=== PATIENT | male | born 1985 ===

== ENCOUNTER 2016-12-10 01:24 | Emergency (ER) | payer MEDICAID, SELFPAY ==
[2016-12-10 01:24] VITALS: BMI 30.2
[2016-12-10 01:31] VITALS: BP 124/77; PULSE 81; RESP 18; TEMP 99.1; O2SAT 98
--- NOTE | 2016-12-10 01:34 | ED PDOC ---
HPI: CCC, URI, Sore Throat Time Seen by Provider: 12/10/16 01:34 Chief Complaint (Nursing): ENT Problem Chief Complaint (Provider): sore throat, fever, cough History Per: Patient Additional Complaint(s): 31-year-old male with history of HIV presents to emergency department with fever , cough and sore throat that started yesterday. Patient is tolerating liquids and solids but has pain when swallowing. He denies any nausea or vomiting. Patient also commented mild headache. He states the cough is nonproductive. Patient states that he is compliant with HIV meds. Past Medical History Reviewed: Historical Data, Nursing Documentation, Vital Signs Vital Signs: Last Vital Signs Temp 99.1 F 12/10/16 01:28 Pulse 81 12/10/16 01:28 Resp 18 12/10/16 01:28 BP 124/77 12/10/16 01:28 Pulse Ox 98 12/10/16 02:36 - Medical History PMH: Anxiety, Depression, HIV - Surgical History Surgical History: Hernia Repair - Family History Family History: States: No Known Family Hx - Living Arrangements Living Arrangements: With Family - Social History Current smoker - smoking cessation education provided: No Alcohol: Social Drugs: Denies - Home Medications Home Medications: Ambulatory Orders Medication Instructions Recorded Elviteg/Tania/Emtric/Tenofo Dis 1 tab PO QPM 02/25/16 [Stribild Tablet] Albuterol HFA [Ventolin HFA 90 2 puff IH Q4H #1 puff 06/15/16 mcg/actuation (8 g)] Cetirizine HCl [All Day Allergy 10 mg PO QPM 06/23/16 Relief] DiphenhydrAMINE [Benadryl] 50 mg PO HS PRN 06/23/16 Famotidine [Pepcid] 20 mg PO QPM 06/23/16 Oseltamivir [Tamiflu] 75 mg PO BID #10 cap 06/23/16 valACYclovir [Valtrex] 1 gm PO QPM 06/23/16 Naproxen [Naprosyn Tab] 375 mg PO Q12 PRN #20 tab 07/20/16 Albuterol HFA [Ventolin HFA 90 1 puff IH ASDIR #1 unit 12/10/16 mcg/actuation (8 g)] Benzonatate 200 mg PO TID PRN #20 capsule 12/10/16 Ibuprofen [Motrin] 600 mg PO Q6 PRN #15 tab 12/10/16 Levofloxacin [Levaquin] 500 mg PO DAILY #6 tablet 12/10/16 - Allergies Allergies/Adverse Reactions: Allergies Allergy/AdvReac Type Severity Reaction Status Date / Time dextromethorphan HBr Allergy RASH Verified 06/15/16 12:51 [From [facility] DM Cough-Chest Congest] guaifenesin Allergy RASH Verified 06/15/16 12:51 [From [facility] DM Cough-Chest Congest] Curb-65 Severity Score - CURB-65 Severity Score Confusion: No Respiratory Rate greater than/equal to 30: No Systolic BP <90 or Diastolic BP less than/equal 60mmHg: No Age >64: No Curb-65 Score: 0 Percentage 30-day mortality: 0.6% Review of Systems ROS Statement: Except As Marked, All Systems Reviewed And Found Negative Constitutional: Positive for: Fever, Chills ENT: Positive for: Nose Congestion, Throat Pain, Throat Swelling Cardiovascular: Negative for: Chest Pain Respiratory: Positive for: Cough Gastrointestinal: Negative for: Nausea, Vomiting Neurological: Positive for: Headache. Negative for: Dizziness Physical Exam - Reviewed Nursing Documentation Reviewed: Yes Vital Signs Reviewed: Yes - Physical Exam Appears: Positive for: Well Skin: Negative for: Rash Eye Exam: Positive for: Normal appearance, EOMI, PERRL ENT: Positive for: TM Is/Are (normal bilaterally), Nasal Congestion, Pharyngeal Erythema, Tonsillar Swelling. Negative for: Tonsillar Exudate Cardiovascular/Chest: Positive for: Regular Rate, Rhythm Respiratory: Positive for: Normal Breath Sounds, Other (dry cough noted during exam). Negative for: Rales, Rhonchi, Wheezing, Respiratory Distress Gastrointestinal/Abdominal: Positive for: Soft. Negative for: Tenderness Extremity: Positive for: Normal ROM Neurologic/Psych: Positive for: Alert, Oriented - ECG O2 Sat by Pulse Oximetry: 98 Pulse Ox Interpretation: Normal - Other Rad CXR X-Ray: Interpreted by Me, Viewed By Me X-Ray Interpretation: no acute finding Medical Decision Making Medical Decision Makin31 year old with fever, sore throat and cough Plan: Flu swab Rapid strep and throat culture PO motrin CXR RSV and flu are negative. Will treat with rx levaquin, tessalon perles, ventolin and motrin rx. Advised fluids, rest and follow up with primary care doctor in 2-3 days. Disposition - Clinical Impression Clinical Impression: Pharyngitis, Bronchitis - Patient ED Disposition Is Patient to be Admitted: No Counseled Patient/Family Regarding: Studies Performed, Diagnosis, Need For Followup, Rx Given - Disposition Referrals: [facility] [Outside] Disposition: Routine/Home Disposition Time: 02:37 Condition: STABLE Additional Instructions: Take rx meds as directed. Rest and drink plenty of fluids. Follow up with primary care doctor or with clinic in 2-3 days. Prescriptions: Albuterol HFA [Ventolin HFA 90 mcg/actuation (8 g)] 1 puff IH ASDIR #1 unit Benzonatate 200 mg PO TID PRN #20 capsule PRN Reason: Cough Ibuprofen [Motrin] 600 mg PO Q6 PRN #15 tab PRN Reason: Pain, Moderate (4-7) Levofloxacin [Levaquin] 500 mg PO DAILY #6 tablet Instructions: Acute Bronchitis (ED), Pharyngitis (ED) Print Language: SINGAPOREAN
[2016-12-10] MEDS ORDERED: Dexamethasone 4 mg/1 ml IM STA (01:39)
[2016-12-10] MEDS ORDERED: levoFLOXacin 500 MG TAB PO STA (02:37)
--- NOTE | 2016-12-10 08:03 | RAD ---
HISTORY: cough COMPARISON: No prior. TECHNIQUE: Chest PA and lateral FINDINGS: LUNGS: No active pulmonary disease. PLEURA: No significant pleural effusion identified. No pneumothorax apparent. CARDIOVASCULAR: Normal. OSSEOUS STRUCTURES: No significant abnormalities. VISUALIZED UPPER ABDOMEN: Normal. OTHER FINDINGS: None. IMPRESSION: No active disease.
== END 2016-12-10 03:25 | disposition home or self-care (01) ==
LOC: H.ER 01:24
DX: J40 Bronchitis, not specified as acute or chronic (principal); R05 Cough; J02.9 Acute pharyngitis, unspecified

== ENCOUNTER 2017-03-09 00:42 | Emergency (ER) | payer MEDICAID, OTHER ==
[2017-03-09 00:43] VITALS: BMI 30.2
[2017-03-09] MEDS ORDERED: Sodium Chloride 0.9% 1,000 ML IV STA (01:15)
--- NOTE | 2017-03-09 01:20 | ED PDOC ---
HPI: General Adult Time Seen by Provider: 03/09/17 00:59 Chief Complaint (Nursing): Groin Pain Chief Complaint (Provider): left groin pain History Per: Patient, Other (significant other) History/Exam Limitations: no limitations Onset/Duration Of Symptoms: Days (5) Current Symptoms Are (Timing): Still Present Additional History Per: Patient Additional Complaint(s): 31 y/o male history of HIV presents with left groin pain x 5 days. Patient states he was admitted to [facility] from 03/04-03/07 for cellulitis of the left groin and given IV antibiotics. Patient states he was discharged with Clindamycin and Ibuprofen and told symptoms should resolved within a few days. Patient notes area to have become more swollen with worsening pain since discharge. Denies fever, nausea/vomiting, testicular pain/ swelling. Past Medical History Reviewed: Historical Data, Nursing Documentation, Vital Signs Vital Signs: Last Vital Signs Temp 98.1 F 03/09/17 03:43 Pulse 64 03/09/17 03:43 Resp 17 03/09/17 03:43 BP 111/57 L 03/09/17 03:43 Pulse Ox 99 03/09/17 04:49 - Medical History PMH: Anxiety, Depression, HIV - Surgical History Surgical History: Hernia Repair - Family History Family History: States: No Known Family Hx - Home Medications Home Medications: Ambulatory Orders Medication Instructions Recorded Elviteg/Tania/Emtric/Tenofo Dis 1 tab PO QPM 02/25/16 [Stribild Tablet] Albuterol HFA [Ventolin HFA 90 2 puff IH Q4H #1 puff 06/15/16 mcg/actuation (8 g)] Cetirizine HCl [All Day Allergy 10 mg PO QPM 06/23/16 Relief] DiphenhydrAMINE [Benadryl] 50 mg PO HS PRN 06/23/16 Famotidine [Pepcid] 20 mg PO QPM 06/23/16 Oseltamivir [Tamiflu] 75 mg PO BID #10 cap 06/23/16 valACYclovir [Valtrex] 1 gm PO QPM 06/23/16 Naproxen [Naprosyn Tab] 375 mg PO Q12 PRN #20 tab 07/20/16 Albuterol HFA [Ventolin HFA 90 1 puff IH ASDIR #1 unit 12/10/16 mcg/actuation (8 g)] Benzonatate 200 mg PO TID PRN #20 capsule 12/10/16 Ibuprofen [Motrin] 600 mg PO Q6 PRN #15 tab 12/10/16 Levofloxacin [Levaquin] 500 mg PO DAILY #6 tablet 12/10/16 Sulfamethoxazole/Trimethoprim 1 tab PO BID #14 tab 03/09/17 [Bactrim DS 800 mg-160 mg] traMADol [Ultram] 50 mg PO Q8 PRN #10 tab 03/09/17 - Allergies Allergies/Adverse Reactions: Allergies Allergy/AdvReac Type Severity Reaction Status Date / Time dextromethorphan HBr Allergy RASH Verified 06/15/16 12:51 [From [facility] Cough-Chest Congest] guaifenesin Allergy RASH Verified 06/15/16 12:51 [From [facility] Cough-Chest Congest] Review of Systems ROS Statement: Except As Marked, All Systems Reviewed And Found Negative Musculoskeletal: Positive for: Other (left groin pain) Physical Exam - Reviewed Nursing Documentation Reviewed: Yes Vital Signs Reviewed: Yes - Physical Exam Appears: Positive for: Well, Non-toxic, Uncomfortable Head Exam: Positive for: ATRAUMATIC, NORMAL INSPECTION, NORMOCEPHALIC Skin: Positive for: Normal Color Cardiovascular/Chest: Positive for: Regular Rate, Rhythm Respiratory: Positive for: Normal Breath Sounds Extremity: Positive for: Other ([id number] firm area of swelling/erythema with central non-draining lesion left groin. No streaking noted) Neurologic/Psych: Positive for: Alert, Oriented - Laboratory Results Result Diagrams: 03/09/17 01:20 03/09/17 01:20 - ECG O2 Sat by Pulse Oximetry: 99 - Progress ED Course And Treament: labs, CT pelvis with IV contrast, IV fluids, IV morphine EXAM: CT Pelvis With Intravenous Contrast EXAM DATE/TIME: 03/09/2017 1:36 AM CLINICAL HISTORY: 31 years old, male; Condition or disease; Mass, lump, or swelling; Lower quadrant, left; Additional info: Left groin pain/swelling TECHNIQUE: Axial computed tomography images of the pelvis with intravenous contrast. All CT scans at this facility use one or more dose reduction techniques, viz.: automated exposure control; ma/kV adjustment per patient size (including targeted exams where dose is matched to indication; i.e. head); or iterative reconstruction technique. Coronal and sagittal reformatted images were created and reviewed. CONTRAST: 90 mL of administered intravenously. COMPARISON: CT - ABD PELVIS IV CONTRAST ONLY 11/03/2015 4:08:26 PM FINDINGS: Bowel: No evidence of bowel obstruction. No pericolonic inflammatory stranding. Appendix: No findings to suggest acute appendicitis. Intraperitoneal space: Unremarkable. No free air. No significant fluid collection. Bladder: Unremarkable. No mass. Reproductive: Unremarkable as visualized. Bones/joints: No acute osseous abnormality. Soft tissues: Left inguinal subcutaneous edema and overlying skin thickening. No drainable fluid collection, soft tissue air or hernia. Vasculature: No lower abdominal aortic aneurysm. Lymph nodes: No enlarged lymph nodes. IMPRESSION: Left inguinal subcutaneous edema and overlying skin thickening. No drainable fluid collection, soft tissue air or hernia. Cellulitis favored in the proper clinical setting. Thank you for allowing us to participate in the care of your patient. IV vanco dose ordered On re-eval, patient states pain improved. Patient educated on findings, discharged with rx Bactrim DS (advised to take in place of clindamycin), tramadol. Advised warm compresses. Follow up in 48 hours for re-eval. Return to ED for worsening/concerning symptoms. Disposition - Clinical Impression Clinical Impression: Cellulitis of groin, left - Patient ED Disposition Is Patient to be Admitted: No Counseled Patient/Family Regarding: Studies Performed, Diagnosis, Need For Followup, Rx Given - Disposition Referrals: [facility] [Outside] Disposition: Routine/Home Disposition Time: 05:04 Condition: IMPROVED Prescriptions: Sulfamethoxazole/Trimethoprim [Bactrim DS 800 mg-160 mg] 1 tab PO BID #14 tab traMADol [Ultram] 50 mg PO Q8 PRN #10 tab PRN Reason: Pain, Severe (8-10) Instructions: Cellulitis (ED) Print Language: MALAY
[2017-03-09 01:47] LABS: BASO # 0.1 K/uL (0.0-0.2); BASO % 0.7 % (0.0-2.0); EOS # 0.7 K/uL (0.0-0.7); EOS % 7.1 % (0.0-4.0); HEMATOCRIT 41.4 % (35.0-51.0); LYMPH # 2.1 K/uL (1.0-4.3); LYMPH % 21.4 % (20.0-40.0); MEAN CELL VOLUME 91.1 fl (80.0-94.0); MEAN CORPUSCULAR HEMOGLOBIN 30.3 pg (27.0-31.0); MEAN CORPUSCULAR HGB CONC 33.3 g/dL (33.0-37.0); MEAN PLATELET VOLUME 7.6 fl (7.2-11.7); MONO # 0.6 K/uL (0.0-0.8); MONO % 6.5 % (0.0-10.0); NEUT # 6.2 K/uL (1.8-7.0); NEUT % 64.3 % (50.0-75.0); RED CELL DISTRIBUTION WIDTH 13.6 % (11.5-14.5); WHITE BLOOD COUNT 9.7 K/uL (4.8-10.8)
[2017-03-09 02:06] LABS: BLOOD UREA NITROGEN 12 mg/dl (9-20); GLUCOSE,RANDOM 95 mg/dL (75-110)
[2017-03-09 02:07] LABS: CALCIUM 9.1 mg/dL (8.4-10.2); CARBON DIOXIDE 23 mmol/L (22-30); CHLORIDE 107 mmol/L (98-107); GFR AFRICAN-AMERICAN > 60; SODIUM 139 mmol/l (132-148); TOTAL PROTEIN 7.8 G/DL (6.3-8.2)
[2017-03-09 02:08] LABS: ALB/GLOB RATIO 1.1 (1.0-2.1); ALKALINE PHOSPHATASE 125 U/L (38-126); ALT/SGPT 58 U/L (21-72); AST/SGOT 32 U/L (17-59); BILIRUBIN,TOTAL 0.3 mg/dl (0.2-1.3)
[2017-03-09] MEDS ORDERED: Sodium Chloride 0.9% 50 ML IV ONE (02:43)
[2017-03-09] MEDS ORDERED: Iohexol 300 100 ML IJ ONE (02:44)
[2017-03-09 03:43] VITALS: BP 111/57; PULSE 64; RESP 17; TEMP 98.1
[2017-03-09] MEDS ORDERED: Vancomycin 1 g Inj ONE (03:58)
[2017-03-09 04:49] VITALS: O2SAT 99
--- NOTE | 2017-03-09 08:14 | CT ---
PROCEDURE: CT Pelvis with contrast. HISTORY: left groin pain/swelling COMPARISON: None. TECHNIQUE: Contiguous axial images of the pelvis with contrast. Coronal and sagittal reformats generated. Contrast dose: Omnipaque 300, 90 cc Radiation dose: Total exam DLP = 490 mGy-cm. This CT exam was performed using one or more of the following dose reduction techniques: Automated exposure control, adjustment of the mA and/or kV according to patient size, and/or use of iterative reconstruction technique. FINDINGS: BLADDER: Unremarkable. No mass. REPRODUCTIVE ORGANS: Unremarkable. VISUALIZED BOWEL: Unremarkable. PERITONEUM: Unremarkable, as visualized. No free fluid. No free air. LYMPH NODES: Unremarkable. No enlarged lymph nodes. VASCULATURE: Unremarkable. BONES: No fracture or focal lesion. OTHER FINDINGS: Subcutaneous reactive changes are appreciate the left groin superficial to the inguinal canal with trace potential minimal fluid collection measuring approximately 1 cm. Findings compatible with cellulitis. No emphysema soft tissue change its are seen and no definitive retained radiodense foreign body is identified. Clinically correlate here. IMPRESSION: Findings most compatible with superficial left inguinal cellulitis separate from the left inguinal sheath. Trace fluid is related. No inguinal hernia appreciated or abscess. Clinical correlation and follow-up are advised.
== END 2017-03-09 05:49 | disposition home or self-care (01) ==
LOC: H.ER 00:42
DX: L03.314 Cellulitis of groin (principal); F32.9 Major depressive disorder, single episode, unspecified; F41.9 Anxiety disorder, unspecified; Z21 Asymptomatic human immunodeficiency virus [HIV] infection status
CPT/HCPCS: 72193; 80053; 83605; 85025; 87040; 96361; 96374; 96375; 99283; J2270; J7040; Q9967

== ENCOUNTER 2017-03-09 19:40 | Emergency (ER) | payer MEDICAID, OTHER ==
[2017-03-09 19:40] VITALS: BMI 30.2
[2017-03-09 20:11] VITALS: BP 120/76; PULSE 78; RESP 18; O2SAT 99
--- NOTE | 2017-03-09 20:44 | ED PDOC ---
HPI: Wound Care - HPI Time Seen by Provider: 03/09/17 20:23 Chief Complaint (Nursing): Abnormal Skin Integrity Chief Complaint (Provider): Wound Check History Per: Patient Exam Limitations: no limitations Onset/Duration Of Symptoms: Days (x 5) Current Symptoms Are (Timing): Still Present Quality Of Symptoms: Painful Additional Complaint(s): Rd is a 31 y/o male who presents to the ED for wound check. He was seen here last night for cellulitis of the left groin, and discharged with Bactrim and Tramadol, and instructed to return in 48 hours. Patient states that today his groin pain worsened, and is now radiating downward, and he noticed some drainage from affected area. PMD: Unknown Past Medical History Reviewed: Historical Data, Nursing Documentation, Vital Signs Vital Signs: Last Vital Signs Temp 100 F H 03/09/17 20:06 Pulse 78 03/09/17 20:06 Resp 18 03/09/17 20:06 BP 120/76 03/09/17 20:06 Pulse Ox 99 03/09/17 20:06 - Medical History PMH: Anxiety, Depression, HIV - Surgical History Surgical History: Hernia Repair - Family History Family History: States: No Known Family Hx - Living Arrangements Living Arrangements: With Family - Social History Current smoker - smoking cessation education provided: No Alcohol: Social Drugs: Denies - Home Medications Home Medications: Ambulatory Orders Medication Instructions Recorded Elviteg/Tania/Emtric/Tenofo Dis 1 tab PO QPM 02/25/16 [Stribild Tablet] Albuterol HFA [Ventolin HFA 90 2 puff IH Q4H #1 puff 06/15/16 mcg/actuation (8 g)] Cetirizine HCl [All Day Allergy 10 mg PO QPM 06/23/16 Relief] DiphenhydrAMINE [Benadryl] 50 mg PO HS PRN 06/23/16 Famotidine [Pepcid] 20 mg PO QPM 06/23/16 Oseltamivir [Tamiflu] 75 mg PO BID #10 cap 06/23/16 valACYclovir [Valtrex] 1 gm PO QPM 06/23/16 Naproxen [Naprosyn Tab] 375 mg PO Q12 PRN #20 tab 07/20/16 Albuterol HFA [Ventolin HFA 90 1 puff IH ASDIR #1 unit 06/10/17 mcg/actuation (8 g)] Benzonatate 200 mg PO TID PRN #20 capsule 12/10/16 Ibuprofen [Motrin] 600 mg PO Q6 PRN #15 tab 12/10/16 Levofloxacin [Levaquin] 500 mg PO DAILY #6 tablet 12/10/16 Sulfamethoxazole/Trimethoprim 1 tab PO BID #14 tab 03/09/17 [Bactrim DS 800 mg-160 mg] traMADol [Ultram] 50 mg PO Q8 PRN #10 tab 03/09/17 - Allergies Allergies/Adverse Reactions: Allergies Allergy/AdvReac Type Severity Reaction Status Date / Time dextromethorphan HBr Allergy RASH Verified 06/15/16 12:51 [From [facility] Cough-Chest Congest] guaifenesin Allergy RASH Verified 06/15/16 12:51 [From [facility] Cough-Chest Congest] Review of Systems ROS Statement: Except As Marked, All Systems Reviewed And Found Negative Constitutional: Negative for: Fever, Chills Skin: Positive for: Other (Wound check of infection to left groin) Physical Exam - Reviewed Nursing Documentation Reviewed: Yes Vital Signs Reviewed: Yes - Physical Exam Appears: Positive for: Non-toxic, No Acute Distress Head Exam: Positive for: ATRAUMATIC, NORMAL INSPECTION, NORMOCEPHALIC Eye Exam: Positive for: Normal appearance Gastrointestinal/Abdominal: Positive for: Soft Male Genital Exam: Positive for: other (Left groin: cellulitis noted with fluctuant actively draining pustular lesion, moderate tenderness to palpation) Extremity: Positive for: Normal ROM. Negative for: Deformity Neurologic/Psych: Positive for: Alert, Oriented. Negative for: Motor/Sensory Deficits - ECG O2 Sat by Pulse Oximetry: 99 (RA) Pulse Ox Interpretation: Normal Medical Decision Making Medical Decision Making: Time: 20:40 Impression: 31 year old male with abscess and cellulitis to the left groin Initial Plan: --Will perform I&D Procedure note: Under sterile conditions, abscess to left groin region was anesthetized with 10 mL of lidocaine 2% with epinephrine, good anesthesia was achieved, using an 11 blade a small incision was made overlying area of fluctuance, moderate amount of blood and purulent discharge expressed from wound. Sterile hemostat used to break up loculations, additional purulent discharge and blood were expressed. Wound was then irrigated with normal saline and Betadine and packed with half-inch iodoform packing, sterile dressing applied overlying packed abscess. Procedure was tolerated well by patient with no acute complications. Patient was advised to continue with bactrim and return to ED in 2 days wound check and packing removal or sooner if worse. Scribe Attestation: Documented by Marbella Aggarwal, acting as a scribe for Stacy Paris PA-C Provider Scribe Attestation: All medical record entries made by the Scribe were at my direction and personally dictated by me. I have reviewed the chart and agree that the record accurately reflects my personal performance of the history, physical exam, medical decision making, and the department course for this patient. I have also personally directed, reviewed, and agree with the discharge instructions and disposition. Disposition - Clinical Impression Clinical Impression: Cellulitis of groin, left, Abscess of groin, left - Patient ED Disposition Is Patient to be Admitted: No Counseled Patient/Family Regarding: Diagnosis, Need For Followup - Disposition Referrals: [facility] [Outside] Disposition: Routine/Home Disposition Time: 22:08 Condition: STABLE Additional Instructions: Keep bandage in place, do not remove or get wet. Take antibiotics as directed. Take pain medication as directed. Return in 2 days for wound recheck or sooner if worse. Instructions: Abscess (ED), Cellulitis (ED) Forms: [employer] (Zimbabwean)
[2017-03-09] MEDS ORDERED: Iodoform 1/2inx15ft BOT EXT ONE (20:51)
[2017-03-09] MEDS ORDERED: Lidocaine 2% w Epi 1:100,000 Inj IJ ONE (21:11)
[2017-03-09] MEDS ORDERED: Tmp-Smz 800 mg-160 mg DS Tab PO STA (22:03)
[2017-03-09] MEDS ORDERED: Tmp-Smz 800 mg-160 mg DS Tab ONE (22:08)
[2017-03-09 22:10] VITALS: TEMP 98.5
== END 2017-03-09 22:17 | disposition home or self-care (01) ==
LOC: H.ER 19:40
DX: L02.214 Cutaneous abscess of groin (principal); L03.314 Cellulitis of groin; F41.9 Anxiety disorder, unspecified; F32.9 Major depressive disorder, single episode, unspecified

== ENCOUNTER 2017-03-11 14:02 | Emergency (ER) | payer MEDICAID, OTHER ==
[2017-03-11 14:04] VITALS: BMI 30.2
[2017-03-11 14:09] VITALS: BP 109/72; PULSE 66; RESP 18; TEMP 98.6; O2SAT 99
[2017-03-11] MEDS ORDERED: Oxycodone/Acetaminophen 5/325 mg Tab PO STA (14:47)
--- NOTE | 2017-03-11 15:37 | ED PDOC ---
HPI: Wound Care - HPI Time Seen by Provider: 03/11/17 14:02 Chief Complaint (Nursing): Wound Check Chief Complaint (Provider): Wound Check History Per: Patient Exam Limitations: no limitations Onset/Duration Of Symptoms: Days (x2) Additional Complaint(s): Rd Schmidt is a 31 year old male with previous medical history of HIV, who presents to the emergency department for a would evaluation of left inguinal abscess status post incision and drainage 2 days ago. Denied any fever, chills or active drainage. Patient stated he was seen at [facility] 1 week ago for cellulitis and received IV antibiotics. He is currently taking Bactrim and pain medication which has not alleviated his symptoms. PMD: none provided Past Medical History Reviewed: Historical Data, Nursing Documentation, Vital Signs Vital Signs: Last Vital Signs Temp 98.6 F 03/11/17 14:07 Pulse 66 03/11/17 14:07 Resp 18 03/11/17 14:07 BP 109/72 03/11/17 14:07 Pulse Ox 99 03/11/17 14:07 - Medical History PMH: Anxiety, Depression, HIV - Surgical History Surgical History: Hernia Repair - Family History Family History: States: Unknown Family Hx - Social History Current smoker - smoking cessation education provided: No Ex-Smoker (has not smoked in the last 12 months): Yes Alcohol: Occasional Drugs: Denies - Home Medications Home Medications: Ambulatory Orders Medication Instructions Recorded Elviteg/Tania/Emtric/Tenofo Dis 1 tab PO QPM 02/25/16 [Stribild Tablet] Albuterol HFA [Ventolin HFA 90 2 puff IH Q4H #1 puff 06/15/16 mcg/actuation (8 g)] Cetirizine HCl [All Day Allergy 10 mg PO QPM 06/23/16 Relief] DiphenhydrAMINE [Benadryl] 50 mg PO HS PRN 06/23/16 Famotidine [Pepcid] 20 mg PO QPM 06/23/16 Oseltamivir [Tamiflu] 75 mg PO BID #10 cap 06/23/16 valACYclovir [Valtrex] 1 gm PO QPM 06/23/16 Naproxen [Naprosyn Tab] 375 mg PO Q12 PRN #20 tab 07/20/16 Albuterol HFA [Ventolin HFA 90 1 puff IH ASDIR #1 unit 12/10/16 mcg/actuation (8 g)] Benzonatate 200 mg PO TID PRN #20 capsule 12/10/16 Ibuprofen [Motrin] 600 mg PO Q6 PRN #15 tab 12/10/16 Levofloxacin [Levaquin] 500 mg PO DAILY #6 tablet 12/10/16 Sulfamethoxazole/Trimethoprim 1 tab PO BID #14 tab 03/09/17 [Bactrim DS 800 mg-160 mg] traMADol [Ultram] 50 mg PO Q8 PRN #10 tab 03/09/17 - Allergies Allergies/Adverse Reactions: Allergies Allergy/AdvReac Type Severity Reaction Status Date / Time dextromethorphan HBr Allergy RASH Verified 06/15/16 12:51 [From [facility] Cough-Chest Congest] guaifenesin Allergy RASH Verified 06/15/16 12:51 [From [facility] Cough-Chest Congest] Review of Systems ROS Statement: Except As Marked, All Systems Reviewed And Found Negative Constitutional: Negative for: Fever, Chills Musculoskeletal: Positive for: Leg Pain (left inguinal abscess ). Negative for : Other (active drainage) Physical Exam - Reviewed Nursing Documentation Reviewed: Yes Vital Signs Reviewed: Yes - Physical Exam Appears: Positive for: Well, Non-toxic, No Acute Distress Head Exam: Positive for: ATRAUMATIC, NORMAL INSPECTION, NORMOCEPHALIC Cardiovascular/Chest: Positive for: Regular Rate, Rhythm. Negative for: Chest Non Tender Respiratory: Positive for: Normal Breath Sounds. Negative for: Respiratory Distress Male Genital Exam: Positive for: inguinal tenderness (left-sided), other (4cm left inguinal induration. moderate purulent discharge noted). Negative for: erythema Extremity: Positive for: Normal ROM Neurologic/Psych: Positive for: Alert, apartment rental agent II-XII, Oriented - ECG O2 Sat by Pulse Oximetry: 99 (RA) Pulse Ox Interpretation: Normal Medical Decision Making Medical Decision Making: Initial Impression: Wound check Initial Plan: * Percocet 5/325mg PO Time:1450 --Verbal consent obtained by patient. --Wound packing was removed. --Wound to be repacked. Scribe Attestation: Documented by Laura Barnes, acting as a scribe for Falguni Moreno PA-C. Provider Scribe Attestation: All medical record entries made by the Scribe were at my direction and personally dictated by me. I have reviewed the chart and agree that the record accurately reflects my personal performance of the history, physical exam, medical decision making, and the department course for this patient. I have also personally directed, reviewed, and agree with the discharge instructions and disposition. Disposition - Clinical Impression Clinical Impression: Encounter for wound re-check - Disposition Disposition: Routine/Home Disposition Time: 15:52 Condition: FAIR Instructions: Abscess (ED) Forms: [employer] (Tajik)
== END 2017-03-11 15:53 | disposition home or self-care (01) ==
LOC: H.ER 14:02
DX: Z48.00 Encounter for change or removal of nonsurgical wound dressing (principal); F32.9 Major depressive disorder, single episode, unspecified; F41.9 Anxiety disorder, unspecified; Z21 Asymptomatic human immunodeficiency virus [HIV] infection status

== ENCOUNTER 2017-08-12 05:03 | Emergency (ER) | payer OTHER ==
[2017-08-12 05:15] VITALS: BMI 26.9
[2017-08-12 05:18] VITALS: BP 122/81; PULSE 94; RESP 16; TEMP 97.6; O2SAT 98
[2017-08-12] MEDS ORDERED: Naproxen 500 MG TAB PO STA (05:28)
[2017-08-12] MEDS ORDERED: Tmp-Smz 800 mg-160 mg DS Tab PO STA (05:28)
--- NOTE | 2017-08-12 05:33 | ED PDOC ---
Lower Extremity Pain/Injury Time Seen by Provider: 08/12/17 05:23 Chief Complaint (Nursing): Lower Extremity Problem/Injury History Per: Patient History/Exam Limitations: no limitations Additional Complaint(s): 31 yo M presents c/o several day h/o pain, redness, and swelling to the b/l 1st toes. Reports h/o ingrown toenails in the past. Reports no trauma, injury, fever , chills, numbness or decrease in ROM. Tdap UTD Past Medical History Vital Signs: Last Vital Signs Temp 97.6 F 08/12/17 05:15 Pulse 94 H 08/12/17 05:15 Resp 16 08/12/17 05:15 BP 122/81 08/12/17 05:15 Pulse Ox 98 08/12/17 05:15 - Medical History PMH: Anxiety, Depression, HIV - Surgical History Surgical History: Hernia Repair - Family History Family History: States: Unknown Family Hx - Home Medications Home Medications: Ambulatory Orders Medication Instructions Recorded Elviteg/Tania/Emtric/Tenofo Dis 1 tab PO QPM 02/25/16 [Stribild Tablet] Albuterol HFA [Ventolin HFA 90 2 puff IH Q4H #1 puff 06/15/16 mcg/actuation (8 g)] Cetirizine HCl [All Day Allergy 10 mg PO QPM 06/23/16 Relief] DiphenhydrAMINE [Benadryl] 50 mg PO HS PRN 06/23/16 Famotidine [Pepcid] 20 mg PO QPM 06/23/16 Oseltamivir [Tamiflu] 75 mg PO BID #10 cap 06/23/16 valACYclovir [Valtrex] 1 gm PO QPM 06/23/16 Naproxen [Naprosyn Tab] 375 mg PO Q12 PRN #20 tab 07/20/16 Albuterol HFA [Ventolin HFA 90 1 puff IH ASDIR #1 unit 12/10/16 mcg/actuation (8 g)] Benzonatate 200 mg PO TID PRN #20 capsule 12/10/16 Ibuprofen [Motrin] 600 mg PO Q6 PRN #15 tab 12/10/16 Levofloxacin [Levaquin] 500 mg PO DAILY #6 tablet 12/10/16 Sulfamethoxazole/Trimethoprim 1 tab PO BID #14 tab 03/09/17 [Bactrim DS 800 mg-160 mg] traMADol [Ultram] 50 mg PO Q8 PRN #10 tab 03/09/17 Cephalexin [Keflex] 500 mg PO Q6 #28 capsule 08/12/17 Naproxen 500 mg PO BID #30 tab 08/12/17 Ondansetron ODT [Zofran ODT] 4 mg PO DAILY PRN #20 odt 08/12/17 Sulfamethoxazole/Trimethoprim 2 tab PO BID #28 tab 08/12/17 [Bactrim DS 800 mg-160 mg] - Allergies Allergies/Adverse Reactions: Allergies Allergy/AdvReac Type Severity Reaction Status Date / Time dextromethorphan HBr Allergy RASH Verified 06/15/16 12:51 [From [facility] Cough-Chest Congest] guaifenesin Allergy RASH Verified 06/15/16 12:51 [From [facility] Cough-Chest Congest] Review of Systems Constitutional: Negative for: Fever, Chills, Malaise Musculoskeletal: Positive for: Foot Pain. Negative for: Neck Pain, Back Pain Skin: Negative for: Rash, Lesions Physical Exam - Reviewed Nursing Documentation Reviewed: Yes Vital Signs Reviewed: Yes - Physical Exam Appears: Positive for: Well, Non-toxic, In Acute Distress (mild painful) Skin: Positive for: Normal Color, Warm, Dry Pulses-Dorsalis Pedis (L): 2+ Pulses-Dorsalis Pedis (R): 2+ Extremity: Positive for: Normal ROM, Capillary Refill (normal), Swelling (+edema , erythema and tenderness by the nail margin of b/l great toe with +purulent d/ c to the L great toenail). Negative for: Deformity - ECG O2 Sat by Pulse Oximetry: 98 Medical Decision Making Medical Decision Making: Plan : - Naprosyn PO - Keflex PO - Bactrim DS PO Case d/w [facility] podiatry resident, recommends PO antibiotics and to d/c the patient to f/u w/ podiatry clinic. Patient instructed to follow-up with the podiatry clinic in 1-2 days without fail. Advised to take medication as prescribed. Return to the emergency room at any time for any new or worsening symptoms. Patient states he fully agrees with and understands discharge instructions. States that h agrees with the plan and disposition. Verbalized and repeated discharge instructions and plan. I have given the patient opportunity to ask any additional questions. Disposition - Clinical Impression Clinical Impression: Ingrown nail - Patient ED Disposition Is Patient to be Admitted: No Counseled Patient/Family Regarding: Diagnosis, Need For Followup, Rx Given - Disposition Referrals: Podiatry Clinic [Outside] Disposition: Routine/Home Disposition Time: 05:30 Condition: STABLE Additional Instructions: Thank you for letting us take care of you today. You were treated for ingrown toenail. The emergency medical care you received today was directed at your acute symptoms. If you were prescribed any medication, please fill it and take as directed. It may take several days for your symptoms to resolve. Return to the Emergency Department if your symptoms worsen, do not improve, or if you have any other problems. Please follow up with the podiatry clinic (open on Monday and Monday) in 2 days for re-evaluation and follow up. Bring any paperwork you were given at discharge with you along with any medications you are taking to your follow up visit. Our treatment cannot replace ongoing medical care by a primary care provider (PCP) outside of the emergency department. Thank you for allowing the [facility] team to be part of your care today. 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
[2017-08-12] MEDS ORDERED: Tmp-Smz 800 mg-160 mg DS Tab ONE (05:57)
[2017-08-12] MEDS ORDERED: Naproxen 500 MG TAB PO ONE (05:57)
== END 2017-08-12 06:14 | disposition home or self-care (01) ==
LOC: H.ER 05:03
DX: L60.0 Ingrowing nail (principal); F41.9 Anxiety disorder, unspecified; F32.9 Major depressive disorder, single episode, unspecified

== ENCOUNTER 2017-09-26 15:52 | Emergency (ER) | payer SELFPAY ==
[2017-09-26 15:52] VITALS: BMI 26.9
[2017-09-26 16:12] VITALS: BP 117/76; PULSE 70; RESP 18; TEMP 98.7; O2SAT 98
--- NOTE | 2017-09-26 17:55 | ED PDOC ---
Lower Extremity Pain/Injury Time Seen by Provider: 09/26/17 16:40 Chief Complaint (Nursing): Lower Extremity Problem/Injury Chief Complaint (Provider): Left Great Toe Pain History Per: Patient History/Exam Limitations: no limitations Onset/Duration Of Symptoms: Days Current Symptoms Are (Timing): Still Present Additional Complaint(s): 32 year old male presents to the ED with complaints of pain to his great left toe beginning one month ago. Patient states he has a history of pain, swelling, and redness of his left great toe and chronic ingrown toenails, which become frequently infected. Patient reports three weeks ago he followed up at the [facility], was given antibiotics, and follow up appointment one month from now. Patient states due to the length in time for follow up appointment he presents to the ER for evaluation. Denies fever, numbness, and trauma. Past Medical History Reviewed: Historical Data, Nursing Documentation, Vital Signs Vital Signs: Last Vital Signs Temp 98.7 F 09/26/17 16:09 Pulse 70 09/26/17 16:09 Resp 18 09/26/17 16:09 BP 117/76 09/26/17 16:09 Pulse Ox 98 09/26/17 16:09 - Medical History PMH: Anxiety, Depression, HIV - Surgical History Surgical History: No Surg Hx, Hernia Repair - Family History Family History: States: Unknown Family Hx - Home Medications Home Medications: Ambulatory Orders Medication Instructions Recorded Elviteg/Tania/Emtric/Tenofo Dis 1 tab PO QPM 02/25/16 [Stribild Tablet] Albuterol HFA [Ventolin HFA 90 2 puff IH Q4H #1 puff 06/15/16 mcg/actuation (8 g)] Cetirizine HCl [All Day Allergy 10 mg PO QPM 06/23/16 Relief] DiphenhydrAMINE [Benadryl] 50 mg PO HS PRN 06/23/16 Famotidine [Pepcid] 20 mg PO QPM 06/23/16 Oseltamivir [Tamiflu] 75 mg PO BID #10 cap 06/23/16 valACYclovir [Valtrex] 1 gm PO QPM 06/23/16 Naproxen [Naprosyn Tab] 375 mg PO Q12 PRN #20 tab 07/20/16 Albuterol HFA [Ventolin HFA 90 1 puff IH ASDIR #1 unit 12/10/16 mcg/actuation (8 g)] Benzonatate 200 mg PO TID PRN #20 capsule 12/10/16 Ibuprofen [Motrin] 600 mg PO Q6 PRN #15 tab 12/10/16 Levofloxacin [Levaquin] 500 mg PO DAILY #6 tablet 12/10/16 Sulfamethoxazole/Trimethoprim 1 tab PO BID #14 tab 03/09/17 [Bactrim DS 800 mg-160 mg] traMADol [Ultram] 50 mg PO Q8 PRN #10 tab 03/09/17 Cephalexin [Keflex] 500 mg PO Q6 #28 capsule 08/12/17 Naproxen 500 mg PO BID #30 tab 08/12/17 Ondansetron ODT [Zofran ODT] 4 mg PO DAILY PRN #20 odt 08/12/17 Sulfamethoxazole/Trimethoprim 2 tab PO BID #28 tab 08/12/17 [Bactrim DS 800 mg-160 mg] Cephalexin [Keflex] 500 mg PO Q6 #28 capsule 09/26/17 - Allergies Allergies/Adverse Reactions: Allergies Allergy/AdvReac Type Severity Reaction Status Date / Time dextromethorphan HBr Allergy RASH Verified 06/15/16 12:51 [From [facility] Cough-Chest Congest] guaifenesin Allergy RASH Verified 06/15/16 12:51 [From [facility] Cough-Chest Congest] Review of Systems ROS Statement: Except As Marked, All Systems Reviewed And Found Negative Constitutional: Negative for: Fever Musculoskeletal: Positive for: Foot Pain (left great toe) Neurological: Negative for: Numbness Physical Exam - Reviewed Nursing Documentation Reviewed: Yes Vital Signs Reviewed: Yes - Physical Exam Comments: GENERAL APPEARANCE: Patient is awake, alert, oriented x 3, in no acute distress. SKIN: Warm, dry; (-) cyanosis. LOWER EXTREMITY: Tenderness to nail margin of left great toe, capillary refill < 2 seconds CARDIOVASCULAR: (+) distal pulse. NEUROLOGIC: (+) distal sensation. - ECG O2 Sat by Pulse Oximetry: 98 Medical Decision Making Medical Decision Making: Impression: Left Great Toe Pain Plan: Case discussed with Podiatry resident, Dr. Franklin in great detail. She recommends keflex prescription as well as a follow up appointment with podiatry clinic scheduled for tomorrow. Based on history and exam, plan will be for discharge to home with instructions to follow up with podiatry clinic. Advised to follow up with pod clinic in 1-2 days without fail. Advised to take medication as prescribed. Return to the emergency room at any time for any new or worsening symptoms. Patient states he fully agrees with and understands discharge instructions. States that he agrees with the plan and disposition. Verbalized and repeated discharge instructions and plan. I have given the patient opportunity to ask any additional questions. Scribe Attestation: Documented by Celine Caputo acting as a scribe for JOSE MIGUEL Moran Provider Attestation: All medical record entries made by the Scribe were at my direction and personally dictated by me. I have reviewed the chart and agree that the record accurately reflects my personal performance of the history, physical exam, medical decision making, and the department course for this patient. I have also personally directed, reviewed, and agree with the discharge instructions and disposition. Disposition - Clinical Impression Clinical Impression: Ingrown nail - Patient ED Disposition Is Patient to be Admitted: No Counseled Patient/Family Regarding: Diagnosis, Need For Followup, Rx Given - Disposition Referrals: Podiatry Clinic [Outside] Disposition: Routine/Home Disposition Time: 17:45 Condition: STABLE Additional Instructions: Follow up with the podiatry clinic tomorrow afternoon at 12 pm without fail. Take medication as prescribed. 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
== END 2017-09-26 18:02 | disposition home or self-care (01) ==
LOC: H.ER 15:52
DX: L60.0 Ingrowing nail (principal); F41.9 Anxiety disorder, unspecified; F32.9 Major depressive disorder, single episode, unspecified

== ENCOUNTER 2018-02-14 19:16 | Emergency (ER) | payer MEDICAID, SELFPAY ==
[2018-02-14 19:16] VITALS: BMI 26.9
[2018-02-14 19:34] VITALS: RESP 17; TEMP 98.3; O2SAT 97
[2018-02-14] MEDS ORDERED: cefTRIAXone (Rocephin) 250 mg Inj IM ONE (21:54)
[2018-02-14 23:38] LABS: URINE BILIRUBIN NEGATIVE (NEGATIVE); URINE BLOOD NEGATIVE (NEGATIVE); URINE CLARITY SLIGHTY-CLOUDY (Clear); URINE COLOR YELLOW (YELLOW); URINE GLUCOSE (UA) NEG (Normal); URINE LEUKOCYTE ESTERASE MOD Leu/uL (Negative); URINE PROTEIN NEGATIVE (NEGATIVE); URINE UROBILINOGEN 0.2-1.0 mg/dL (0.2-1.0)
--- NOTE | 2018-02-14 23:42 | ED PDOC ---
HPI: Male Pain Time Seen by Provider: 02/14/18 21:30 Chief Complaint (Nursing): Male Genitourinary Chief Complaint (Provider): Male Genitourinary History Per: Patient History/Exam Limitations: no limitations Onset/Duration Of Symptoms: Hrs Associated Symptoms: Urinary Symptoms (dysuria, urethral discharge). denies: Fever, Chills Additional Complaint(s): Rd Schmidt is a 32 year old male with a past medical history of HIV (viral load undetectable CD4 500) who is presenting to the ED with complaints of urethral discharge and dysuria, onset today. Patient states that he was having penetrative anal intercourse with a man 6 days ago (Monday), and the condom broke, but reports that he started developing the symptoms today. Patient denies any fever, chills, or other medical problems. PMD: none provided Past Medical History Reviewed: Historical Data, Nursing Documentation, Vital Signs Vital Signs: Last Vital Signs Temp 98.3 F 02/14/18 19:29 Pulse 63 02/14/18 19:29 Resp 17 02/14/18 19:29 BP 108/74 02/14/18 19:29 Pulse Ox 97 02/14/18 19:29 - Medical History PMH: Anxiety, Depression, HIV Denies: Chronic Kidney Disease - Surgical History Surgical History: Hernia Repair - Family History Family History: States: Unknown Family Hx - Social History Current smoker - smoking cessation education provided: No (former) Alcohol: Social Drugs: Denies - Home Medications Home Medications: Ambulatory Orders Medication Instructions Recorded Elviteg/Tania/Emtric/Tenofo Dis 1 tab PO QPM 02/25/16 [Stribild Tablet] Albuterol HFA [Ventolin HFA 90 2 puff IH Q4H #1 puff 06/15/16 mcg/actuation (8 g)] Cetirizine HCl [All Day Allergy 10 mg PO QPM 06/23/16 Relief] DiphenhydrAMINE [Benadryl] 50 mg PO HS PRN 06/23/16 Famotidine [Pepcid] 20 mg PO QPM 06/23/16 Oseltamivir [Tamiflu] 75 mg PO BID #10 cap 06/23/16 valACYclovir [Valtrex] 1 gm PO QPM 06/23/16 Naproxen [Naprosyn Tab] 375 mg PO Q12 PRN #20 tab 07/20/16 Albuterol HFA [Ventolin HFA 90 1 puff IH ASDIR #1 unit 12/10/16 mcg/actuation (8 g)] Benzonatate 200 mg PO TID PRN #20 capsule 12/10/16 Ibuprofen [Motrin] 600 mg PO Q6 PRN #15 tab 12/10/16 Levofloxacin [Levaquin] 500 mg PO DAILY #6 tablet 12/10/16 Sulfamethoxazole/Trimethoprim 1 tab PO BID #14 tab 03/09/17 [Bactrim DS 800 mg-160 mg] traMADol [Ultram] 50 mg PO Q8 PRN #10 tab 03/09/17 Cephalexin [Keflex] 500 mg PO Q6 #28 capsule 08/12/17 Naproxen 500 mg PO BID #30 tab 08/12/17 Ondansetron ODT [Zofran ODT] 4 mg PO DAILY PRN #20 odt 08/12/17 Sulfamethoxazole/Trimethoprim 2 tab PO BID #28 tab 08/12/17 [Bactrim DS 800 mg-160 mg] Cephalexin [Keflex] 500 mg PO Q6 #28 capsule 09/26/17 Nitrofurantoin Macrocrystals 100 mg PO BID 5 Days cap 02/14/18 [Macrobid] - Allergies Allergies/Adverse Reactions: Allergies Allergy/AdvReac Type Severity Reaction Status Date / Time dextromethorphan HBr Allergy RASH Verified 06/15/16 12:51 [From [facility] Cough-Chest Congest] guaifenesin Allergy RASH Verified 06/15/16 12:51 [From [facility] Cough-Chest Congest] Review of Systems ROS Statement: Except As Marked, All Systems Reviewed And Found Negative Constitutional: Negative for: Fever, Chills Genitourinary Male: Positive for: Dysuria, Other (urethral discharge) Physical Exam - Reviewed Nursing Documentation Reviewed: Yes Vital Signs Reviewed: Yes - Physical Exam Appears: Positive for: Well, Non-toxic, No Acute Distress Head Exam: Positive for: ATRAUMATIC, NORMAL INSPECTION, NORMOCEPHALIC Skin: Positive for: Normal Color, Warm, DRY Eye Exam: Positive for: EOMI, Normal appearance, PERRL ENT: Positive for: Normal ENT Inspection Neck: Positive for: Normal, Painless ROM Cardiovascular/Chest: Positive for: Regular Rate, Rhythm. Negative for: Murmur Respiratory: Positive for: Normal Breath Sounds. Negative for: Respiratory Distress Gastrointestinal/Abdominal: Positive for: Normal Exam, Soft. Negative for: Tenderness Male Genital Exam: Positive for: urethral discharge (mucoid penile discharge ) Back: Positive for: Normal Inspection. Negative for: L CVA Tenderness, R CVA Tenderness Extremity: Positive for: Normal ROM. Negative for: Deformity, Swelling Neurologic/Psych: Positive for: Alert, Oriented. Negative for: Motor/Sensory Deficits - ECG O2 Sat by Pulse Oximetry: 97 (RA) Pulse Ox Interpretation: Normal Medical Decision Making Medical Decision Making: Time: 21:55 A/P: 32 year old male with history of HIV presenting with STD exposure --Patient is well appearing with normal vital signs --Will treat empirically for gonorrhea and chlamydia --Patient [id number] on methods of safe sex and prevention --Upon provider evaluation, patient is medically stable for discharge --Advised to follow up with PMD Scribe Attestation: Documented by Yisel Maya, acting as a scribe for Kev Valentin MD. Provider Scribe Attestation: All medical record entries made by the Scribe were at my direction and personally dictated by me. I have reviewed the chart and agree that the record accurately reflects my personal performance of the history, physical exam, medical decision making, and the department course for this patient. I have also personally directed, reviewed, and agree with the discharge instructions and disposition. Disposition - Clinical Impression Clinical Impression: STD exposure, Urinary tract infection, Urinary incontinence - Patient ED Disposition Is Patient to be Admitted: No - Disposition Referrals: [facility] [Other] Disposition: Routine/Home Disposition Time: 23:37 Condition: STABLE Prescriptions: Nitrofurantoin Macrocrystals [Macrobid] 100 mg PO BID 5 Days cap Instructions: Urinary Tract Infections in Adults, Condom Options, Screening for Sexually Transmitted Infections, Urethritis (DC), Sexually-Transmitted Diseases Forms: [employer] (Senegalese) Print Language: [place] ISLANDER
[2018-02-14 23:52] VITALS: BP 132/72; PULSE 60
[2018-02-15 16:24] LABS: RAPID PLASMA REAGIN REACTIVE (NONREACTIVE)
[2018-02-15 16:25] LABS: RPR TITER 1:32 (NONREACTIVE)
== END 2018-02-14 21:51 | disposition home or self-care (01) ==
LOC: H.ER 19:16
DX: Z20.2 Contact with and (suspected) exposure to infections with a predominantly sexual mode of transmission (principal); N39.0 Urinary tract infection, site not specified; R32 Unspecified urinary incontinence; Z21 Asymptomatic human immunodeficiency virus [HIV] infection status; F32.9 Major depressive disorder, single episode, unspecified; F41.9 Anxiety disorder, unspecified
CPT/HCPCS: 81003; 86592; 86780; 87491; 87591; 96372; 99283; J0696

== ENCOUNTER 2018-02-21 16:37 | Emergency (ER) | payer MEDICAID, OTHER ==
[2018-02-21 16:40] VITALS: BMI 26.9
[2018-02-21 16:45] VITALS: BP 136/61; PULSE 69; RESP 16; TEMP 98.5; O2SAT 97
[2018-02-21] MEDS ORDERED: Penicillin G Benzathine 2.4 Mill Unit/4 ml Syr IM ONE (17:03)
--- NOTE | 2018-02-21 18:27 | ED PDOC ---
HPI: General Adult Time Seen by Provider: 02/21/18 16:55 Chief Complaint (Nursing): Medical Clearance Chief Complaint (Provider): Antibiotic Injection History Per: Patient History/Exam Limitations: no limitations Additional Complaint(s): 32 year old male, with a past medical history of HIV, presents to the ED for follow up antibiotic injection after being called on Monday for being found positive for syphilis. Patient was seen in this ED on 02/14/18 and found positive for gonorrhea and chlamydia. PMD: none provided Past Medical History Reviewed: Historical Data, Nursing Documentation, Vital Signs Vital Signs: Last Vital Signs Temp 98.5 F 02/21/18 16:43 Pulse 69 02/21/18 16:43 Resp 16 02/21/18 16:43 BP 136/61 02/21/18 16:43 Pulse Ox 97 02/21/18 19:17 - Medical History PMH: Anxiety, Depression, HIV Denies: Chronic Kidney Disease - Surgical History Surgical History: Hernia Repair - Family History Family History: States: Unknown Family Hx - Social History Current smoker - smoking cessation education provided: No Ex-Smoker (has not smoked in the last 12 months): Yes Alcohol: Social Drugs: Denies - Home Medications Home Medications: Ambulatory Orders Medication Instructions Recorded Elviteg/Tania/Emtric/Tenofo Dis 1 tab PO QPM 02/25/16 [Stribild Tablet] Albuterol HFA [Ventolin HFA 90 2 puff IH Q4H #1 puff 06/15/16 mcg/actuation (8 g)] Cetirizine HCl [All Day Allergy 10 mg PO QPM 06/23/16 Relief] DiphenhydrAMINE [Benadryl] 50 mg PO HS PRN 06/23/16 Famotidine [Pepcid] 20 mg PO QPM 06/23/16 Oseltamivir [Tamiflu] 75 mg PO BID #10 cap 06/23/16 valACYclovir [Valtrex] 1 gm PO QPM 06/23/16 Naproxen [Naprosyn Tab] 375 mg PO Q12 PRN #20 tab 07/20/16 Albuterol HFA [Ventolin HFA 90 1 puff IH ASDIR #1 unit 12/10/16 mcg/actuation (8 g)] Benzonatate 200 mg PO TID PRN #20 capsule 12/10/16 Ibuprofen [Motrin] 600 mg PO Q6 PRN #15 tab 12/10/16 Levofloxacin [Levaquin] 500 mg PO DAILY #6 tablet 12/10/16 Sulfamethoxazole/Trimethoprim 1 tab PO BID #14 tab 03/09/17 [Bactrim DS 800 mg-160 mg] traMADol [Ultram] 50 mg PO Q8 PRN #10 tab 03/09/17 Cephalexin [Keflex] 500 mg PO Q6 #28 capsule 08/12/17 Naproxen 500 mg PO BID #30 tab 08/12/17 Ondansetron ODT [Zofran ODT] 4 mg PO DAILY PRN #20 odt 08/12/17 Sulfamethoxazole/Trimethoprim 2 tab PO BID #28 tab 08/12/17 [Bactrim DS 800 mg-160 mg] Cephalexin [Keflex] 500 mg PO Q6 #28 capsule 09/26/17 Nitrofurantoin Macrocrystals 100 mg PO BID 5 Days cap 02/14/18 [Macrobid] - Allergies Allergies/Adverse Reactions: Allergies Allergy/AdvReac Type Severity Reaction Status Date / Time dextromethorphan HBr Allergy RASH Verified 02/21/18 16:42 [From [facility] Cough-Chest Congest] guaifenesin Allergy RASH Verified 02/21/18 16:42 [From [facility] Cough-Chest Congest] Review of Systems ROS Statement: Except As Marked, All Systems Reviewed And Found Negative Physical Exam - Reviewed Nursing Documentation Reviewed: Yes Vital Signs Reviewed: Yes - Physical Exam Appears: Positive for: Non-toxic, No Acute Distress Head Exam: Positive for: ATRAUMATIC, NORMOCEPHALIC Skin: Positive for: Normal Color, Warm, Dry Eye Exam: Positive for: Normal appearance Neck: Positive for: Normal, Painless ROM Cardiovascular/Chest: Negative for: Bradycardia, Tachycardia Respiratory: Negative for: Respiratory Distress Extremity: Positive for: Normal ROM Neurologic/Psych: Positive for: Alert, Oriented. Negative for: Motor/Sensory Deficits - ECG O2 Sat by Pulse Oximetry: 97 (RA) Pulse Ox Interpretation: Normal Medical Decision Making Medical Decision Making: Initial Impression: Antibiotic Injection Initial Plan: Penicillin G Benzathine 2,400,000 units IM Scribe Attestation: Documented by Luisito Traore acting as a scribe for Autumn GILLESPIE. Provider Scribe Attestation: All medical record entries made by the Scribe were at my direction and personally dictated by me. I have reviewed the chart and agree that the record accurately reflects my personal performance of the history, physical exam, medical decision making, and the department course for this patient. I have also personally directed, reviewed, and agree with the discharge instructions and disposition. Disposition - Clinical Impression Clinical Impression: Acquired syphilis - Patient ED Disposition Is Patient to be Admitted: No - Disposition Disposition: Routine/Home Disposition Time: 16:23 Condition: GOOD Instructions: Syphilis (DC), General (DC) Forms: [employer] (Surinamese) Print Language: NEPALI
== END 2018-02-21 17:33 | disposition home or self-care (01) ==
LOC: H.ER 16:37
DX: A53.9 Syphilis, unspecified (principal); Z23 Encounter for immunization; Z86.59 Personal history of other mental and behavioral disorders; Z21 Asymptomatic human immunodeficiency virus [HIV] infection status; Z87.891 Personal history of nicotine dependence
CPT/HCPCS: 96372; 99282; J0561

== ENCOUNTER 2018-10-30 12:32 | Emergency (ER) | payer SELFPAY ==
[2018-10-30 12:33] VITALS: BMI 26.9
[2018-10-30 13:06] VITALS: RESP 18
--- NOTE | 2018-10-30 15:01 | ED PDOC ---
History of Present Illness History of Present Illness: 33 y/o Male with hx of HIV (undetectable viral load on HAART therapy) who presents with sore throat, subjective fever, cough productive of greenish sputum x 3 days. Pt also admits to having body aches. Had penetrative sex with another male 4 days ago and condom broke so patient would like to be checked for STDs. Denies dysuria, urinary frequency, penile discharge. Patient has a hx of syph ilis, chlamydia and Gonorrhea around 02/2108 (treated for all). Patient states that he has felt overall malaise and having some body aches. He states that he did not take his HIV meds for 3 weeks as he ran out and was unable to get refills until 6 days ago but has been taking it consistently since then. He has also had N/V since yesterday, 4 episodes yesterday and once today. Denies diarrhea. HPI: Influenza Time Seen by Provider: 10/30/18 13:30 Chief Complaint: Flu-like Symptoms Chief Complaint (Provider): flu-like symptoms History Per: Patient Exam Limitations: no limitations Hx Influenza Vaccination: No Risk factors for flu complications: Yes: immunosuppression Past Medical History Reviewed: Historical Data, Nursing Documentation, Vital Signs Vital Signs: Last Vital Signs Temp 98.2 F 10/30/18 13:00 Pulse 73 10/30/18 13:00 Resp 18 10/30/18 13:00 BP 101/67 10/30/18 13:00 Pulse Ox 96 10/30/18 13:00 Primary Care Provider: Doctor,Conversion - Medical History PMH: Anxiety, Depression, HIV Denies: Chronic Kidney Disease - Surgical History Surgical History: Hernia Repair - Family History Family History: States: Unknown Family Hx - Social History Current smoker - smoking cessation education provided: No Ex-Smoker (has not smoked in the last 12 months): No Alcohol: None Drugs: Denies - Home Medications Home Medications: Ambulatory Orders Medication Instructions Recorded Elviteg/Tania/Emtric/Tenofo Dis 1 tab PO QPM 02/25/16 [Stribild Tablet] Albuterol HFA [Ventolin HFA 90 2 puff IH Q4H #1 puff 06/15/16 mcg/actuation (8 g)] Cetirizine HCl [All Day Allergy 10 mg PO QPM 06/23/16 Relief] DiphenhydrAMINE [Benadryl] 50 mg PO HS PRN 06/23/16 Famotidine [Pepcid] 20 mg PO QPM 06/23/16 Oseltamivir Cap [Tamiflu] 75 mg PO BID #10 cap 06/23/16 valACYclovir [Valtrex] 1 gm PO QPM 06/23/16 Naproxen [Naprosyn Tab] 375 mg PO Q12 PRN #20 tab 07/20/16 Albuterol HFA [Ventolin HFA 90 1 puff IH ASDIR #1 unit 12/10/16 mcg/actuation (8 g)] Benzonatate 200 mg PO TID PRN #20 capsule 12/10/16 Ibuprofen [Motrin] 600 mg PO Q6 PRN #15 tab 12/10/16 Levofloxacin [Levaquin] 500 mg PO DAILY #6 tablet 12/10/16 Sulfamethoxazole/Trimethoprim 1 tab PO BID #14 tab 03/09/17 [Bactrim DS 800 mg-160 mg] traMADol [Ultram] 50 mg PO Q8 PRN #10 tab 03/09/17 Cephalexin [Keflex] 500 mg PO Q6 #28 capsule 08/12/17 Naproxen 500 mg PO BID #30 tab 08/12/17 Ondansetron ODT [Zofran ODT] 4 mg PO DAILY PRN #20 odt 08/12/17 Sulfamethoxazole/Trimethoprim 2 tab PO BID #28 tab 08/12/17 [Bactrim DS 800 mg-160 mg] Cephalexin [Keflex] 500 mg PO Q6 #28 capsule 09/26/17 Nitrofurantoin Macrocrystals 100 mg PO BID 5 Days cap 02/14/18 [Macrobid] Benzonatate [Tessalon Perles] 100 mg PO BID PRN 7 Days sgl 10/30/18 Ciprofloxacin [Cipro] 500 mg PO BID 5 Days tab 10/30/18 Metronidazole [Flagyl] 500 mg PO BID 7 Days tablet 10/30/18 - Allergies Allergies/Adverse Reactions: Allergies Allergy/AdvReac Type Severity Reaction Status Date / Time dextromethorphan HBr Allergy RASH Verified 10/30/18 12:59 [From Robafen DM Cough-Chest Congest] guaifenesin Allergy RASH Verified 10/30/18 12:59 [From Robafen DM Cough-Chest Congest] Review of Systems Constitutional: Positive for: Fever, Chills, Malaise Respiratory: Positive for: Cough. Negative for: Shortness of Breath Gastrointestinal: Positive for: Nausea, Vomiting Genitourinary Male: Negative for: Dysuria, Frequency Physical Exam - Reviewed Nursing Documentation Reviewed: Yes Vital Signs Reviewed: Yes - Physical Exam Appears: Positive for: No Acute Distress Skin: Positive for: Normal Color ENT: Positive for: TM Is/Are (normal B/L), Pharyngeal Erythema (mild), Tonsillar Swelling, Other (no thrushy). Negative for: Sinus Pain/Drainage, Nasal Congestion, Tonsillar Exudate Cardiovascular/Chest: Positive for: Regular Rate, Rhythm Respiratory: Positive for: Normal Breath Sounds Gastrointestinal/Abdominal: Positive for: Soft, Tenderness (tenderness on palpation of LLQ and RLQ). Negative for: Distended, Guarding, Rebound Lymphatic: Positive for: Normal Exam Neurological/Psych: Positive for: Awake, Alert, Oriented Medical Decision Making Medical Decision Making: CBC, CMP, lipase Abd/pelvis CT w/ PO and IV contrast to r/o lexa obstruction U/A CXR Rapid flu, Rapid strep GC/Chlamydia Infectious [place] Rocephin 250mg IM x 1 Azithromycin 1G PO x 1 Normal Saline 1L IV x 1 Patient advised to follow up with his Infectious disease doctor to determine ev aluation for syphilis given prior infection as well as for general follow up and treatment of his HIV. Patient demonstrated understanding. Patient further advised that he will be given a call in 2 - 3 days pending results of Gonorrhea and Chlamydia testing. Abd/pelvis CT w/o contrast: 1. Diffuse hypoattenuation compatible with fatty infiltration. Liver is enlarged. 19cm. 2. Small fat containing umbilical hernia is noted. 3. Diffuse pancolitis. Infectious and inflammatory etiologies are considered. Consider f/u with colonoscopy. Findings discussed with patient and advised to follow up with GI specialist for further evaluation. Advised that he will receive a follow up phone call if cultu res return positive. Patient continues to have cough with sore throat. Will prescribe Tessalon Perles for cough given allergy to dextromethorphan and guaifenesin. - Laboratory Results Result Diagrams: 10/30/18 16:10 10/30/18 16:10 - ECG O2 Sat by Pulse Oximetry: 96 Disposition - Clinical Impression Clinical Impression: Influenza-like symptoms, Colitis - Patient ED Disposition Is Patient to be Admitted: No Counseled Patient/Family Regarding: Studies Performed, Diagnosis, Need For Followup - Disposition Referrals: Pattie Fam MD [Family Provider] - Sanford Wells MD [Staff Provider] - Disposition: Routine/Home Disposition Time: 21:00 Condition: STABLE Additional Instructions: Follow up with your primary care doctor for further testing for syphilis. Take Ibuprofen or Tylenol for sore throat and body pains. Take Ciprofloxacin and Metronidazole (antibiotics) as directed for colitis. Return to ER if your symptoms worsen. Follow up with enlisted advisor re: colitis for further work- up. Prescriptions: Ciprofloxacin [Cipro] 500 mg PO BID 5 Days tab Metronidazole [Flagyl] 500 mg PO BID 7 Days tablet Forms: [employer] (Romanian) Print Language: ENGLISH
[2018-10-30] MEDS ORDERED: Iohexol 240 (50 ml) ONE (15:48)
[2018-10-30] MEDS: Sodium Chloride 0.9% 1,000 ML IV STA (16:03)
[2018-10-30] MEDS: Iohexol 240 (50 ml) PO STA (16:03)
[2018-10-30 16:06] LABS: URINE BILIRUBIN NEGATIVE (NEGATIVE); URINE BLOOD NEGATIVE (NEGATIVE); URINE CLARITY CLEAR (Clear); URINE COLOR YELLOW (YELLOW); URINE GLUCOSE (UA) NEG (NEGATIVE); URINE LEUKOCYTE ESTERASE NEG Leu/uL (Negative); URINE PROTEIN NEGATIVE (NEGATIVE); URINE UROBILINOGEN 0.2-1.0 mg/dL (0.2-1.0)
[2018-10-30 16:16] LABS: BASO % 0.4 % (0.0-2.0); EOS # 0.1 K/uL (0.0-0.7); HEMOGLOBIN 14.7 g/dL (12.0-18.0); LYMPH # 2.5 K/uL (1.0-4.3); LYMPH % 29.8 % (20.0-40.0); MEAN CELL VOLUME 96.7 fl (80.0-94.0); MEAN CORPUSCULAR HEMOGLOBIN 32.4 pg (27.0-31.0); MEAN CORPUSCULAR HGB CONC 33.5 g/dL (33.0-37.0); MEAN PLATELET VOLUME 7.6 fl (7.2-11.7); MONO # 0.7 K/uL (0.0-0.8); MONO % 7.8 % (0.0-10.0); NEUT # 5.2 K/uL (1.8-7.0); NRBC % 0.1 % (0.0-0.0); RBC 4.55 Mil/uL (4.40-5.90); RED CELL DISTRIBUTION WIDTH 12.7 % (11.5-14.5); WHITE BLOOD COUNT 8.5 K/uL (4.8-10.8)
--- NOTE | 2018-10-30 16:24 | RAD ---
Date of service: 10/30/2018 HISTORY: shortness of breath, cough COMPARISON: 12/10/2016 TECHNIQUE: Chest PA and lateral views FINDINGS: LUNGS: No active pulmonary disease. PLEURA: No significant pleural effusion identified. No pneumothorax apparent. CARDIOVASCULAR: No aortic atherosclerotic calcification present. Normal cardiac size. No pulmonary vascular congestion. OSSEOUS STRUCTURES: No significant abnormalities. VISUALIZED UPPER ABDOMEN: Normal. OTHER FINDINGS: None. IMPRESSION: No active disease.
[2018-10-30 16:26] LABS: ALB/GLOB RATIO 1.4 (1.0-2.1); ALBUMIN 4.5 g/dL (3.5-5.0); ALT/SGPT 90 U/L (21-72); AST/SGOT 43 U/L (17-59); BLOOD UREA NITROGEN 12 mg/dl (9-20); GFR NON-AFRICAN AMERICAN > 60; LIPASE 162 U/L (23-300)
[2018-10-30] MEDS ORDERED: Sodium Chloride 0.9% 50 ML IV ONE (17:06)
[2018-10-30] MEDS ORDERED: Iohexol 300 100 ML IJ ONE (17:06)
[2018-10-30 19:53] VITALS: BP 115/71; PULSE 59; TEMP 98.5
[2018-10-30 20:18] VITALS: O2SAT 96
[2018-10-30] MEDS ORDERED: PED IVPB STA ×2 (20:18→20:24)
[2018-10-30] MEDS ORDERED: CEFTRIAXONE IVPB STA ×2 (20:18→20:24)
[2018-10-30] MEDS ORDERED: cefTRIAXone (Rocephin) 250 mg Inj ONE (20:33)
[2018-10-30] MEDS: cefTRIAXone (Rocephin) 250 mg Inj IM ONE (20:51)
--- NOTE | 2018-10-31 10:27 | CT ---
Date of service: 10/30/2018 PROCEDURE: CT Abdomen and Pelvis with contrast HISTORY: Lower abdominal pain x 2 days w/ N/V COMPARISON: 11/03/2015. TECHNIQUE: CT scan of the abdomen and pelvis was performed after administration of intravenous contrast. Oral contrast was administered. Coronal and sagittal reformatted images were obtained. Contrast dose: 95 mL Omnipaque 300 Radiation dose: Total exam DLP = 484.99 mGy-cm. This CT exam was performed using one or more of the following dose reduction techniques: Automated exposure control, adjustment of the mA and/or kV according to patient size, and/or use of iterative reconstruction technique. FINDINGS: LOWER THORAX: There is dependent atelectasis in the lung bases. LIVER: Mild hepatomegaly and diffuse fatty liver. Normal homogeneous enhancement. No gross lesion or ductal dilatation. GALLBLADDER AND BILE DUCTS: Well distended. No calcified gallstones, wall thickening or pericholecystic fluid. PANCREAS: Normal in size with homogeneous enhancement. No gross lesion or ductal dilatation. SPLEEN: Normal in size and appearance. ADRENALS: No discrete nodule. KIDNEYS AND URETERS: Normal in size with homogeneous enhancement. No hydronephrosis. No solid mass. VASCULATURE: No aortic aneurysm. There are no aortic atherosclerotic calcifications or mural plaque present. BOWEL: The small bowel loops are normal in caliber. There is apparent mild circumferential mural thickening in the terminal ileum likely related to backwash ileitis. There is apparent mild circumferential mural thickening in the colon with relative sparing of the distal descending colon. No bowel obstruction. APPENDIX: Normal appendix. PERITONEUM: No free fluid. No free air. LYMPH NODES: No enlarged lymph nodes. BLADDER: Well distended and normal in appearance. REPRODUCTIVE: The prostate gland is normal in size. BONES: No acute fracture. Within normal limits for the patient's age. OTHER FINDINGS: There is a tiny fat containing inguinal hernia. IMPRESSION: 1. Apparent mild circumferential mural thickening in the colon which may represent acute nonspecific infectious/inflammatory colitis. No evidence for bowel obstruction. 2. Mild hepatomegaly and fatty liver. A preliminary report was provided by [employer].
== END 2018-10-30 21:00 | disposition home or self-care (01) ==
LOC: H.ER 12:32
DX: J11.1 Influenza due to unidentified influenza virus with other respiratory manifestations (principal); K52.9 Noninfective gastroenteritis and colitis, unspecified; Z86.59 Personal history of other mental and behavioral disorders; Z79.899 Other long term (current) drug therapy
CPT/HCPCS: 71046; 74177; 80053; 81003; 83690; 85025; 86308; 87070; 87086; 87430; 87491; 87591; 87804; 96360; 96372; 99285; J0696; J7030; Q9966; Q9967